=== PATIENT | female | born 1970 | race Caucasian/White ===

== ENCOUNTER 2017-03-17 07:45 | Day surgery (SDC) | payer OTHER ==
[~2017-03-17] VITALS: Ht 165.1 cm; Wt 90.9 kg
[~2017-03-17 07:45] MED LIST: BUPIVACAINE/PF-EPI 0.25% 1:200K ONE; NEOMY/POLYMYXIN B GU IRR. 1 ML IRRIG ONE; NONE PER PT
[2017-03-17] MEDS ORDERED: FENTANYL PF 100 MCG/2ML ONE ×4 (08:01→10:57)
[2017-03-17] MEDS ORDERED: MIDAZOLAM 1 MG/ML, 2ML ONE (08:01)
[2017-03-17] MEDS ORDERED: LACTATED RINGERS 1,000 ML IV SCH (08:24)
[2017-03-17 08:27] VITALS: BP 154/104
[2017-03-17 08:51] LABS: HCG UR OBC PASS
[2017-03-17] MEDS ORDERED: ONDANSETRON 2MG/ML, 2ML ONE (09:29)
[2017-03-17] MEDS ORDERED: DEXAMETHASONE 4 MG/ML, 1ML ONE (09:29)
[2017-03-17] MEDS ORDERED: CEFAZOLIN 1,000 MG ONE (09:29)
[2017-03-17] MEDS ORDERED: GLYCOPYRROLATE 0.2MG/1ML, 5ML ONE (09:29)
[2017-03-17] MEDS ORDERED: ROCURONIUM 10 MG/ML ONE (09:29)
[2017-03-17] MEDS ORDERED: PROPOFOL 10 MG/ML, 20ML ONE (09:29)
[2017-03-17] MEDS ORDERED: KETOROLAC 30 MG/1 ML ONE (09:29)
[2017-03-17] MEDS ORDERED: NEOSTIGMINE 1 MG/ML, 10ML ONE (09:29)
[2017-03-17] MEDS ORDERED: ONDANSETRON 2MG/ML, 2ML IVPush PRN (09:30)
[2017-03-17] MEDS ORDERED: hydrALAzine 20 MG/ML, 1ML IV PRN (09:30)
[2017-03-17] MEDS ORDERED: ACETAMINOPHEN 325 MG TABLET PO PRN (09:30)
[2017-03-17] MEDS ORDERED: MEPERIDINE/PF 25MG/0.5ML IVPush PRN (09:30)
[2017-03-17] MEDS ORDERED: OXYcodone 5 MG/5 ML ORAL.SOL UDC PO PRN (09:30)
[2017-03-17] MEDS ORDERED: PROMETHAZINE 25 MG/ML, 1ML IV PRN (09:30)
[2017-03-17] MEDS ORDERED: LABETALOL 5MG/ML, 20ML IV PRN (09:30)
[2017-03-17] MEDS ORDERED: ACETAMINOPHEN 650 MG/20.3 ML UDC ONE (10:44)
[2017-03-17] MEDS ORDERED: OXYcodone 5 MG/5 ML ORAL.SOL UDC ONE (10:44)
[2017-03-17] MEDS: FENTANYL PF 100 MCG/2ML IV PRN ×4 (10:50→11:29)
[2017-03-17] MEDS ORDERED: HYDROmorphone 1 MG/ML, 1ML ONE ×2 (10:57→11:12)
[2017-03-17] MEDS: HYDROmorphone 1 MG/ML, 1ML IV PRN ×4 (10:59→11:30)
[2017-03-17] MEDS ORDERED: hydrALAzine 20 MG/ML, 1ML ONE (11:12)
[2017-03-17] MEDS ORDERED: HYDROmorphone 2 MG/ML, 1ML ONE (13:15)
[2017-03-17] MEDS ORDERED: OXYcodone/APAP 5/325MG TABLET PO PRN (13:30)
[2017-03-17] MEDS ORDERED: HYDROmorphone 2 MG/ML, 1ML IVPush PRN (13:30)
[2017-03-17] MEDS ORDERED: HYDROcodone/APAP 5/325 TABLET PO PRN (13:30)
[2017-03-17] MEDS ORDERED: ONDANSETRON ODT 4 MG ONE (17:38)
[2017-03-17] MEDS ORDERED: ONDANSETRON ODT 4 MG PO ONE (18:00)
== END 2017-03-17 17:45 ==
LOC: OUT 07:45
PROVIDERS: ATTEND Obstetrics & Gynecology Female Pelvic Medicine and Reconstructive Surgery
DX: D25.9 Leiomyoma of uterus, unspecified (principal); N92.1 Excessive and frequent menstruation with irregular cycle; N94.6 Dysmenorrhea, unspecified; N80.3 Endometriosis of pelvic peritoneum; F32.9 Major depressive disorder, single episode, unspecified; F41.9 Anxiety disorder, unspecified; Z98.890 Other specified postprocedural states
CPT/HCPCS: 58552; 81025; 88307; J0360; J0690; J1100; J1170; J1885; J2250; J2405; J2704; J2710; J3010; J7120; Q0162; J3490